=== PATIENT | female | born 1980 | race Caucasian/White ===

== ENCOUNTER 2024-08-31 11:09 | Emergency (ER) | payer OTHER, SELFPAY ==
[2024-08-31 11:16] VITALS: BP 114/77
[2024-08-31 11:36] LABS: % Basophils 0.6 % (0-2); % Eosinophils 1.3 % (0-6); % Immature Granulocytes 0.4 % (0-0.5); % Lymphocytes 39.7 % (20.5-51.1); % Monocytes 8.5 % (1.7-9.3); % Neutrophils 49.5 % (42.2-75.2); Absolute Eosinophils 0.1 10^3/uL (0-0.7); Absolute Lymphocytes 2.1 10^3/uL (1.2-3.4); Absolute Monocytes 0.5 10^3/uL (0.1-0.6); Absolute Neutrophils 2.6 10^3/uL (1.4-6.5); Hematocrit 39.3 % (37.0-47.0); Hemoglobin 13.7 g/dL (12.0-16.0); Mean Corp Hgb Conc. 34.9 g/dL (33.0-37.0); Mean Corpuscular Hgb 28.3 pg (27.0-31.0); Mean Corpuscular Volume 81.2 fL (81.0-99.0); Mean Platelet Volume 9.4 fL (7.4-10.4); Nucleated Red Blood Cells % 0 %; Platelet Count 241 10^3/uL (130-400); Red Blood Cell Count 4.84 10^6/uL (4.20-5.40); White Blood Cell Count 5.3 10^3/uL (4.8-10.8)
[2024-08-31 11:50] LABS: HCG, Serum Qualitative Screen Negative
[2024-08-31 11:53] LABS: ALT (SGPT) 13 U/L (0-35); AST (SGOT) 19 U/L (14-36); Albumin 4.8 g/dl (3.5-5.0); Alkaline Phosphatase 37 U/L (38-126); Blood Urea Nitrogen 11 mg/dl (7-17); Calcium 9.9 mg/dl (8.4-10.2); Carbon Dioxide 24 mmol/L (22-30); Chloride 105 mmol/L (98-107); Glucose 85 mg/dl (70-99); Potassium 4.1 mmol/L (3.5-5.1); Sodium 143 mmol/L (135-145); Total Bilirubin 0.9 mg/dl (0.2-1.3); Total Protein 7.1 g/dl (6.3-8.2); eGFR > 60.00
[2024-08-31 12:02] LABS: Troponin I < 0.012 ng/ml
[2024-08-31 12:06] LABS: Lipase 131 U/L (23-300)
--- NOTE | 2024-08-31 14:19 | ED.GENMED ---
History of Present Illness
General
Chief Complaint: Abdominal Pain
Time Seen by Provider: 08/31/24 13:07
History of Present Illness
History of Present Illness:
44-year-old female presents to the emergency department for evaluation of persistent epigastric pain that is been ongoing for the past month or more. She reports the pain is constant but worsens approximately 1 to 2 hours after eating. Pain
radiates upward toward the chest as well. She was started on pantoprazole by her primary care physician but feels this has not helped after more than 1 week. She denies any weight loss or night sweats. No vomiting or diarrhea. She denies NSAID
use, has discontinued all alcohol use since the start of the symptoms. No prior abdominal surgeries
Review of Systems
Review of Systems
Allergies reviewed?: Yes
All Other Systems: ROS reviewed and negative except as documented in HPI and ROS
Phy Exam
Physical Exam
Physical Exam:
GEN: Well appearing, NAD, WDWN
HEENT: Oral mucosa moist, no scleral icterus
Cardiac: Regular rate
Lung: No respiratory distress, no tachypnea
Abdomen: Soft, focal epigastric tenderness, negative Menendez sign, no reproducible chest wall tenderness
MSK: No gross deformity or injuries
Skin: Good color, no pallor or jaundice, no rashes
Neuro: AO x3, moves all extremities freely
Psych: Calm, cooperative
Course
Orders/Labs/Results
Orders:
Orders
08/31/24 11:09
Electrocardiogram (*1) Urgent
Reason for Study: Chest Pain
08/31/24 11:10
EKG- Treatment ONCE
08/31/24 11:21
Test Result ONCE
08/31/24 11:25
Complete Blood Count/With Diff Urgent
08/31/24 11:26
Comprehensive Metabolic Panel Urgent
HCG, Serum Qualitative Screen Urgent
Comment: Notify provider if positive test present
Lipase Urgent
Troponin I Urgent
08/31/24 13:29
US Abdomen Complete/Upper Urgent
Comment:
Reason For Exam: epigastric pain
Abnormal Lab Results
08/31/24
11:26
Alkaline Phosphatase 37 L U/L
(38-126)
08/31/24 11:25
08/31/24 11:26
Vital Signs
Initial and Last Documented VS:
Initial Vital Signs
Temp Pulse Resp BP Pulse Ox
98.0 F 87 16 114/77 99
08/31/24 11:16 08/31/24 11:16 08/31/24 11:16 08/31/24 11:16 08/31/24 11:16
Last Documented Vital Signs
Temp Pulse Resp BP Pulse Ox
98.0 F 87 16 114/77 100
08/31/24 11:16 08/31/24 11:16 08/31/24 11:16 08/31/24 11:16 08/31/24 13:30
MDM/Problems Addressed
MDM/Problems Addressed:
Patient's labs are unremarkable and ultrasound reveals no biliary disease. She does not appear to have a presentation compatible with an SMA syndrome given that she does not have exquisite pain and there is no weight loss. Will add Carafate to her
regimen and recommend she follow-up with gastroenterology as an outpatient
*Critical Care Note
Total Time (30-74mins, 75-104mins- exclusive of procedures): Not Applicable
ED Attending Note
-
Portions of this chart may have been created with voice recognition software.� Occasional wrong word or��sound alike� substitutions may have occurred due to the inherent limitations of voice recognition software.
Discharge Plan
Departure
Patient Disposition: Home (Routine Discharge)
Date of Disposition: 08/31/24
Time of Disposition: 14:19
Patient with high blood pressure during this ER visit?: No
Discharge Problem:
Gastroesophageal reflux disease
Instructions: Acid Reflux and GERD in Adults (DC)
Prescriptions:
New
sucralfate [Carafate] 1 gram tablet
1 g PO AC Qty: 90 0RF
Rx Instructions:
Dissolve tablet in 10mL clear liquid and consume prior to meals
Referrals:
Gregorio Rodriguez, [Active] -
Pushpa Lopez DO [Family Provider] -
Interventions
Interventions:
*Risk Screen - Suicide Last Done: 08/31/24 11:16
*General Assessment Last Done: 08/31/24 11:16
*Neglect/Abuse Screening Last Done: 08/31/24 11:16
*ED COVID-19 Vaccine History Last Done: 08/31/24 11:16
*Nursing Disposition Last Done: 08/31/24 14:37
SH-[id number]-[id number] Assessment Last Done: 08/31/24 13:55
Discharge Date and Time
Discharge Date/Time: 08/31/24 14:38
Print Language: HEBREW
== END 2024-08-31 14:38 | disposition home or self-care (01) ==
LOC: EMR 11:09
PROVIDERS: Emergency Medicine; EMERGENCY PHYSICIAN Emergency Medicine; FAMILY PHYSICIAN Family Medicine
DX: K21.9 Gastro-esophageal reflux disease without esophagitis (principal)
CPT/HCPCS: 99284; 76700; 80053; 83690; 84484; 84703; 85025; 93005